=== PATIENT | male | born 1995 | race Caucasian/White ===

== ENCOUNTER 2021-08-18 07:47 | Emergency (ER) | payer OTHER, SELFPAY | END 2021-08-18 08:27 | disposition home or self-care (01) | LOC: MADERS 07:47 | DX: M62.830 Muscle spasm of back (principal); F17.220 Nicotine dependence, chewing tobacco, uncomplicated | CPT/HCPCS: 99283 ==

== ENCOUNTER 2021-10-17 18:31 | Emergency (ER) | payer OTHER | END 2021-10-17 18:50 | disposition home or self-care (01) | LOC: MADERS 18:31 | DX: K02.9 Dental caries, unspecified (principal); F17.220 Nicotine dependence, chewing tobacco, uncomplicated | CPT/HCPCS: 99282 ==

== ENCOUNTER 2021-10-21 10:52 | Outpatient (CLI) | payer OTHER ==
[2021-10-21 12:04] LABS: #Eosinphils 0.2 thou/uL (0.0-0.7); #Lymphocytes 2.2 thou/uL (1.20-3.40); #Monocytes 0.5 thou/uL (0.11-0.59); #Neutrophils 3.3 thou/uL (1.40-6.50); %Basophils 0.6 % (0.0-1.0); %Eosinophils 3.1 % (0.0-10.0); %Lymphocytes 35.1 % (21.0-51.0); %Monocytes 8.4 % (0.0-10.0); %Neutrophils 52.7 % (42.0-75.0); Hemoglobin 16.4 g/dL (14.0-18.0); Mean Corpuscular HGB CONC 32.2 g/dL (32.0-36.0); Mean Corpuscular Hemoglobin 27.1 pg (27.0-31.0); Mean Corpuscular Volume 84.1 fL (78.0-98.0); Mean Platelet Volume 11.5 fL (7.4-10.4); Platelet Count 198 thou/uL (130-400); RBC Distribution Width 11.9 % (11.5-14.5); Red Blood Cell (RBC) Count 6.04 mill/uL (4.70-6.10); White Blood Cell (WBC) Count 6.2 thou/uL (4.8-10.8)
[2021-10-21 12:22] LABS: ALT (SGPT) 21 U/L (8-55); AST (SGOT) 17 U/L (5-34); Albumin 4.3 g/dL (3.5-5.0); Alkaline Phosphatase 43 U/L (40-110); Anion Gap 15 mmol/L (10-20); BUN (Urea Nitrogen) 14 mg/dL (8.9-20.6); Bilirubin, Total 0.4 mg/dL (0.2-1.2); Calc. Creatinine Clearance 0 mL/min (70-130); Calcium 9.2 mg/dL (7.8-10.44); Carbon Dioxide 26 mmol/L (22-29); Cardiac Risk 4.5 (Less than 4.5); Chloride 103 mmol/L (98-107); Cholesterol 196 mg/dl (< 200 Desired); Glucose 89 mg/dL (70-105); HDL Cholesterol 44 mg/dL (>60 Neg Risk); LDL Cholesterol, Calculated 118 mg/dL; Potassium 4.1 mmol/L (3.5-5.1); Protein, Total 7.3 g/dL (6.0-8.3); Sodium 140 mmol/L (136-145); Triglycerides 168 mg/dL (Less than 150)
[2021-10-21 16:08] LABS: Hemoglobin A1c 5.3 % (4.0-6.0)
== END 2021-10-21 10:53 | disposition home or self-care (01) ==
LOC: MADLAB 10:52
PROVIDERS: ATTEND Registered Nurse
DX: I10 Essential (primary) hypertension (principal)
CPT/HCPCS: 36415; 80053; 80061; 83036; 84443; 85025

== ENCOUNTER 2021-10-22 07:43 | Emergency (ER) | payer OTHER | END 2021-10-22 08:26 | disposition home or self-care (01) | LOC: MADERS 07:43 | DX: M62.838 Other muscle spasm (principal); F17.220 Nicotine dependence, chewing tobacco, uncomplicated | CPT/HCPCS: 99283 ==

== ENCOUNTER 2021-10-30 07:37 | Emergency (ER) | payer OTHER | END 2021-10-30 08:23 | disposition home or self-care (01) | LOC: MADERS 07:37 | DX: M62.838 Other muscle spasm (principal); F17.290 Nicotine dependence, other tobacco product, uncomplicated; F17.220 Nicotine dependence, chewing tobacco, uncomplicated | CPT/HCPCS: 99283 ==

== ENCOUNTER 2022-01-25 07:55 | Emergency (ER) | payer OTHER ==
[2022-01-25] MEDS ORDERED: Bupivacaine HCl 0.5%/Epinephrine 1:200,000/PF 30 ml Vial ONE (08:10)
== END 2022-01-25 08:18 | disposition home or self-care (01) ==
LOC: MADERS 07:55
DX: K04.7 Periapical abscess without sinus (principal); I10 Essential (primary) hypertension; F17.220 Nicotine dependence, chewing tobacco, uncomplicated; F17.290 Nicotine dependence, other tobacco product, uncomplicated

== ENCOUNTER 2022-01-26 01:43 | Emergency (ER) | payer OTHER ==
[2022-01-26] MEDS ORDERED: Bupivacaine PF 0.5% 30 ML VIAL ONE (01:53)
[2022-01-26] MEDS ORDERED: Ketorolac Tromethamine 30 MG/ML VIAL ONE (02:03)
[2022-01-26] MEDS ORDERED: Metoclopramide HCl 10 MG/2 ML VIAL ONE (02:03)
== END 2022-01-26 02:20 | disposition home or self-care (01) ==
LOC: MADERS 01:43
DX: K08.89 Other specified disorders of teeth and supporting structures (principal); R51.9 Headache, unspecified; I10 Essential (primary) hypertension; F17.200 Nicotine dependence, unspecified, uncomplicated
CPT/HCPCS: 64400; 96372; J1885; J2765; S0020

== ENCOUNTER 2022-03-04 15:43 | Emergency (ER) | payer OTHER ==
[2022-03-04] MEDS ORDERED: Ketorolac Tromethamine 30 MG/ML VIAL ONE (16:52)
== END 2022-03-04 17:18 | disposition home or self-care (01) ==
LOC: MADERS 15:43
DX: R51.9 Headache, unspecified (principal); I10 Essential (primary) hypertension; F17.220 Nicotine dependence, chewing tobacco, uncomplicated; Z79.899 Other long term (current) drug therapy
CPT/HCPCS: 96372; 99283; J1885

== ENCOUNTER 2022-03-23 14:52 | Emergency (ER) | payer OTHER ==
[2022-03-23] MEDS ORDERED: Acetaminophen 500 MG TAB ONE ×2 (20:19→20:27)
== END 2022-03-23 21:30 | disposition home or self-care (01) ==
LOC: MADERS 14:52
DX: M54.6 Pain in thoracic spine (principal); R07.89 Other chest pain; I10 Essential (primary) hypertension; F17.220 Nicotine dependence, chewing tobacco, uncomplicated
CPT/HCPCS: 71046; 84484; 93005